=== PATIENT | male | born 1945 | race Caucasian/White ===

== ENCOUNTER 2023-06-02 07:38 | Outpatient (CLI) | payer MEDICARE, BC, SELFPAY ==
--- NOTE | 2023-06-02 08:00 | CRLHL7_ITS ---
For Patients: As a result of the Century Cures Act, medical imaging exams and procedure reports are released immediately into your electronic medical record. You may view this report before your referring provider. If you have questions, please contact your health care provider. INDICATION: Lung cancer screening. History of smoking. Current smoker. High risk patient with greater than 50 pack-year smoking history. TECHNIQUE: Low-dose lung cancer screening non-contrast CT chest. Dose reduction techniques were used. COMPARISON: None. FINDINGS: NODULES: 5 mm right perifissural nodule image 92 series 3.. LUNGS AND PLEURA: Emphysematous type change. Scattered subpleural fibrosis right and left upper lobes. 5 millimeter perifissural nodule right middle lobe of the lung image 92 series 3. MEDIASTINUM: Normal. CORONARY ARTERY CALCIFICATION: Present. LIMITED UPPER ABDOMEN: Normal. MUSCULOSKELETAL: Scattered hypertrophic spurring of the spine. IMPRESSION: Negative for lung cancer screening purposes. LUNG-RADS CATEGORY: 2: Benign. (<1% risk of malignancy) -Perifissural nodule(s): <10 mm RADIOLOGIST RECOMMENDATION: Continue annual screening with low-dose CT chest in 12 months. Please note that all CT scans at this facility use dose modulation, iterative reconstruction, and/or weight-based dosing when appropriate to reduce radiation dose to as low as reasonably achievable. Dictated by Mulugeta Borjas MD @ 06/02/2023 12:01:16 PM (Electronically Signed)
== END 2023-06-02 07:39 | disposition home or self-care (01) ==
LOC: CT 07:43
PROVIDERS: PCP Internal Medicine; Visit Provider Internal Medicine
DX: F17.200 Nicotine dependence, unspecified, uncomplicated (principal); Z12.2 Encounter for screening for malignant neoplasm of respiratory organs
CPT/HCPCS: 71271

== ENCOUNTER 2024-06-23 13:09 | Observation (INO) | payer MEDICARE, BC, SELFPAY ==
[2024-06-23] VITALS (9 sets, daily range): BP systolic 98–146; BP diastolic 64–86; PULSE 70–87; RESP 16–24; TEMP 36.2–36.4; O2SAT 87–93; BMI 31.3; BMI 31.9
--- NOTE | 2024-06-23 13:41 | ED_ITS ---
HPI - Back Pain/Injury General Time Seen by Provider: 13:41 Date Seen: 06/23/24 Chief Complaint: Back Injury/Pain Stated Complaint: Lower back pain Time Seen by Provider: 06/23/24 13:10 Source: patient, family and RN notes reviewed Mode of arrival: ambulatory Limitations: no limitations History of Present Illness HPI Narrative: This 79-year-old male is coming in accompanied by his for right flank pain. He denies any trauma, did put window screens in yesterday but was not bothering him. This pain woke him up in the middle of the night. He is taking a total of 1500 mg of Tylenol, tried an old muscle relaxant he had at home; nothing has improved his symptoms. He really has not ate or drank much today, maybe had some nausea earlier. No nausea at this time but diminished appetite. No abdominal pain per se. He had not noted any urinary symptoms but prior to coming in felt like he had to go in really only went a small amount. He feels like he could go again. He feels that this is a bit unusual. There has been no fevers or chills. The pain is not in the low back, does not go into his leg. He has had a history of sciatica and this is different. This is in his right flank area, deeper than where he can really touch on the external chest wall or abdominal wall. He has not had a bowel movement today but does not feel like there is any concerns with his bowels. Related Data Allergies Allergy/AdvReac Type Severity Reaction Status Date / Time No Known Drug Allergies Allergy Verified 06/23/24 13:22 Review of Systems Status of ROS: Reports: 6 or more systems reviewed and unremarkable except as noted in History and below [facility] Medical History Lumbar disc herniation with radiculopathy ?M51.16 - Intervertebral disc disorders with radiculopathy, lumbar region (ICD-10) Hypertension ?I10 - Essential (primary) hypertension (ICD-10) Dry eye syndrome ?H04.129 - Dry eye syndrome of unspecified lacrimal gland (ICD-10) History of Helicobacter pylori infection ?Z86.19 - Personal history of other infectious and parasitic diseases (ICD- 10) Tobacco use disorder ?F17.200 - Nicotine dependence, unspecified, uncomplicated (ICD-10) Primary osteoarthritis of right knee ?M17.11 - Unilateral primary osteoarthritis, right knee (ICD-10) COPD (chronic obstructive pulmonary disease) ?J44.9 - Chronic obstructive pulmonary disease, unspecified (ICD-10) Peripheral sensory neuropathy ?G60.8 - Other hereditary and idiopathic neuropathies (ICD-10) Type 2 diabetes mellitus without complication, without long-term current use of insulin ?E11.9 - Type 2 diabetes mellitus without complications (ICD-10) Surgical History History of umbilical hernia repair (01/17/16) ?Z98.890 - Other specified postprocedural states (ICD-10) ?Z87.19 - Personal history of other diseases of the digestive system (ICD-10) History of arthroscopy of left shoulder (03/16/14) ?Z98.890 - Other specified postprocedural states (ICD-10) History of total left knee replacement (2006) ?Z96.652 - Presence of left artificial knee joint (ICD-10) History of right inguinal hernia repair (1969) ?Z98.890 - Other specified postprocedural states (ICD-10) ?Z87.19 - Personal history of other diseases of the digestive system (ICD-10) History of elbow surgery (1999) ?Z98.890 - Other specified postprocedural states (ICD-10) History of appendectomy ?Z90.49 - Acquired absence of other specified parts of digestive tract (ICD- 10) History of Achilles tendon repair (1989) ?Z98.890 - Other specified postprocedural states (ICD-10) Family History Brother Colon cancer, Onset Age: 68 Heart disease Myocardial infarction Mother Heart valve replaced, Onset Age: 70 Social History Smoking Status: Current every day smoker What tobacco products do you use: cigarettes Smoking packs per day: 0.5 Smoking cigarettes per day: 10.0 How often do you have a drink containing alcohol: 2-4 times a month AUDIT-C Alcohol total score: 2 Non-prescribed substance use: denies use Exam Const: Vital Signs, click to edit/add: Vital Signs - 24 hr 06/23/24 13:15 06/23/24 15:45 06/23/24 15:49 Temperature 97.6 F Pulse Rate Pulse Rate [Pulse Oximeter] 70 87 Respiratory Rate 24 Blood Pressure [Ri ght Upper Arm] 146/86 H Pulse Oximetry 93 87 L 91 Oxygen Delivery Me thod Room Air Room Air Nasal Cannula Oxygen Flow Rate 1 06/23/24 15:50 Temperature Pulse Rate 73 Pulse Rate [Pulse Oximeter] Respiratory Rate Blood Pressure [Ri ght Upper Arm] Pulse Oximetry 89 Oxygen Delivery Me thod Nasal Cannula Oxygen Flow Rate 1 This 79-year-old male is up standing in the room when I come in. He is alert, interactive, does not look like he is very comfortable, moving about in the room. Pupils are equal round, sclera clear. Able speak in complete sentences. Lungs are clear, good air entry, no wheezing or crackles. CV regular rate and rhythm, no murmur, normal S1-S2, no S3-S4. Abdomen is soft, nontender, nondistended. Has some mild right CVA tenderness but I really cannot reproduce any palpable chest wall tenderness. Documenting provider has reviewed patient's vital signs: yes Course Course ED Course: Have discussed with this patient that he reminds me of someone with a kidney stone, just unable to get comfortable, no position of comfort. We will stab lotion IV, I will give him some IV morphine. He is not aware of any kidney iss ues but at his age, would like to see a creatinine before use any Toradol or NSAIDs. We will start with CT imaging of his abdomen, reviewed that that is best imaging for kidney stones. He understands that we may need to repeat imaging with IV contrast if indicated or needed. Will get a full complement of labs, he does feel like he can not urinate again and will get urinalysis. I doubt that this is musculoskeletal but would be considered if there is nothing else found on workup. Reevaluation(s) Time of Reevaluation #1: 15:14 Reevaluation #1: Patient requesting more pain meds. Will give more morphine and give oral dose of oxycodone. Patient CT is showing a right-sided kidney stone, will be in to talk to him about this. Time of Reevaluation #2: 15:46 Reevaluation #2: Went to talk to patient, his pulse oximeter was is not reading very well, looked to be hypoxic. I readjusted on his finger, had him rest this hand. He is anywhere from 85-88% mostly with a good waveform. Will occasionally jump above that but nothing above 91%. At home he states he is usually 90-91% with his COPD. He is resting right now, not feeling short of breath. Unfortunately with his kidney function, NSAIDs are not an option for pain management. Is going to need narcotics as Tylenol will not be sufficient. I think we may be forced to put him in the hospital with some supplemental oxygen, have asked staff to give him 1 L nasal cannula oxygen. I will review with the hospitalist. Have also paged out Urology. He has some stranding about his kidney, mildly elevated white blood count. He does not have significant pyuria but he also does not have significant hematuria with this kidney stone. Do wonder if he should be prophylaxed with antibiotics, observing him maybe more prudent in this situation if there is a question of infection, certainly does not seem definitive that there is at this time. Again, will review with the hospitalists, do have a page out to Urology as well. Consultations Consultation #1: Left message on hospitalist cellphone to call us back when she is available. 3:58 p.m.: Have spoken with Dr. Petty. She agrees with observing this patient, agrees that he does not meet criteria for transfer. We did specifically discuss the perinephric changes on the CT. She will watch him, watch for infection and get him transferred if this should be the case. Will not give any antibiotics at this point. Have not heard back from Urology. She has requested that we do a lab add on for her VBG for baseline for this patient which I have done. I have also ordered 0.4 mg of Flomax for him. She accepts. Time: 15:50 Vital Signs Vital signs: Initial Vital Signs Temperature 97.6 F 06/23/24 13:15 Temperature Source Temporal Artery Scan 06/23/24 13:15 Pulse Rate 70 06/23/24 13:15 Respiratory Rate 24 06/23/24 13:15 Blood Pressure 146/86 H 06/23/24 13:15 Blood Pressure Mean 106 H 06/23/24 13:15 Blood Pressure Position High-Fowlers 06/23/24 13:15 Pulse Oximetry 93 06/23/24 13:15 Oxygen Delivery Method Room Air 06/23/24 13:15 Vital Signs Temperature 97.6 F 06/23/24 13:15 Pulse Rate 70 06/23/24 13:15 Respiratory Rate 24 06/23/24 13:15 Blood Pressure 146/86 H 06/23/24 13:15 Pulse Oximetry 93 06/23/24 13:15 Oxygen Delivery Method Room Air 06/23/24 13:15 Temperature 97.6 F 06/23/24 13:15 Pulse Rate 73 06/23/24 15:50 Respiratory Rate 24 06/23/24 13:15 Blood Pressure 146/86 H 06/23/24 13:15 Pulse Oximetry 89 06/23/24 15:50 Oxygen Delivery Method Nasal Cannula 06/23/24 15:50 Oxygen Flow Rate 1 06/23/24 15:50 Medications Administered Medications: Discontinued Medications Generic Name Dose Route Start Last Admin Trade Name Freq PRN Reason Stop Dose Admin Sodium Chloride 500 mls @ 500 mls/hr 06/23/24 13:50 06/23/24 15:00 0.9 % Sodium Chloride 500 Ml IV 06/23/24 14:49 Infused .Q1H ONE Infusion Morphine Sulfate 2 mg 06/23/24 13:50 06/23/24 14:19 Morphine 2 Mg/Ml Inj IVP 06/23/24 13:51 2 mg ONCE ONE Administration Morphine Sulfate 2 mg 06/23/24 15:15 06/23/24 15:29 Morphine 2 Mg/Ml Inj IVP 06/23/24 15:16 2 mg ONCE ONE Administration Ondansetron HCl 4 mg 06/23/24 13:50 06/23/24 14:18 Ondansetron 2 Mg/Ml Inj IVP 06/23/24 13:51 4 mg ONCE ONE Administration Oxycodone HCl 5 mg 06/23/24 15:20 06/23/24 15:32 Oxycodone 5 Mg Tablet PO 06/23/24 15:21 5 mg ONCE ONE Administration MDM - Back Pain/Injury Lab Data Attestation: I reviewed the patient's lab results. Labs: Lab Results 06/23/24 06/23/24 Range/Units 14:10 Unknown WBC 12.85 H (4.50-11.00) K/uL RBC 5.07 (4.30-5.90) m/uL Hgb 17.3 (13.5-17.5) gm/dL Hct 50.3 (37.0-53.0) % MCV 99 (80-100) fL MCH 34 (26-34) pg MCHC 34 (32-36) gm/dL RDW Coeff of Edilia 12.9 (11.5-15.5) % Plt Count 180 (140-440) K/uL Neut % (Auto) 73.4 H (42.0-72.0) % Lymph % (Auto) 16.6 L (20-44) % Bent % (Auto) 8.7 (0.0-11.0) % Eos % (Auto) 0.3 (0.0-7.0) % Baso % (Auto) 0.2 (0.0-3.0) % Neut # (Auto) 9.40 H (1.7-7.0) K/uL Lymph # (Auto) 2.10 (0.90-2.90) K/uL Bent # (Auto) 1.10 H (0.00-0.90) K/UL Eos # (Auto) 0.00 (0.00-0.50) K/uL Baso # (Auto) 0.00 (0.00-0.30) K/uL Abs Immat Gran (auto) 0.10 (0.00-0.30) K/uL Imm/Tot Granulo (auto) 0.8 % Sodium 135 (135-149) mmol/L Potassium 5.0 (3.6-5.1) mmol/L Chloride 104 (96-114) mmol/L Carbon Dioxide 20 (20-32) mmol/L Anion Gap 11 (7-15) mEq/L BUN 24 (7-30) mg/dL Creatinine 1.3 (0.5-1.5) mg/dL Estimated Creat Clear 46.04 Estimated GFR 57 ml/min Glucose 132 H (60-115) mg/dL Lactate 2.2 H (0.5-1.9) mmol/L Calcium 9.9 (8.4-10.6) mg/dL C-Reactive Protein 0.6 (0.5-1.0) mg/dL Urine Color Yellow (Yellow) Urine Appearance Clear (Clear) Urine pH 7.0 (5.0-8.5) Ur Specific [place] 1.020 (1.000-1.030) Urine Protein Negative (Negative) Urine Glucose (UA) Negative (Negative) Urine Ketones Negative (Negative) Urine Blood 2+ A (Negative) Urine Nitrite Negative (Negative) Urine Bilirubin Negative (Negative) Urine Urobilinogen 0.2 (0.2-1.0) Ur Leukocyte Esterase Negative (Negative) Urine RBC 2-5 A (0-2) Urine WBC 0-2 (0-5) Ur Squamous Epith Cells None (None-Few) Urine Bacteria Few A (None) Imaging Data CT scan - abdomen: Attestation: I have reviewed the pertinent imaging results. Radiologist's impression: Patient: PAMELA GILLIS Facility:?[facility] Patient ID:?[id number] Site Patient ID:?[id number]. Site :?[id number] Study:?CT-Abdomen/Pelvis STONE STUDY-06/23/2024 2:46:21 PM Ordering Physician:?Gregory Buchanan Final Report: INDICATION: Right flank pain, kidney stone suspected. TECHNIQUE: CT abdomen and pelvis without contrast, stone protocol. COMPARISON: Lumbar spine CT 09/07/[address] 06/02/2023 FINDINGS: Kidney/ureters: Kidneys are normal in caliber. Moderate right perirenal fat stranding. Mild right hydronephrosis with obstructing right ureterovesicular junction stone measuring 4 mm. Liver/gallbladder/bile ducts: The liver is normal in size, shape and attenuation. Gallbladder is normal without visualized stones or inflammation. No biliary dilatation. Spleen/pancreas/adrenal glands: The spleen, adrenal glands and pancreas are within normal limits. GI tract: The bowel is unremarkable. Abdominal wall/omentum/peritoneum: No free air or significant free fluid. No mas s or inflammation. Lymph nodes: No lymphadenopathy. Pelvis: Unremarkable pelvis. Lower chest: Solid right perifissural nodule measuring 5 mm (3/8). Bibasal peripheral areas of cystic change. IMPRESSION: : Obstructing right ureterovesicular junction stone measuring 4 mm with mild right hydronephrosis and right perirenal fat stranding. Please correlate with urinalysis to evaluate for superimposed pyelonephritis. Please note that all CT scans at this facility use dose modulation, iterative reconstruction, and/or weight-based dosing when appropriate to reduce radiation dose to as low as reasonably achievable. Dictated by Bailey Cope MD @ 06/23/2024 3:09:19 PM (Electronic Signature) Discharge Plan Discharge Clinical Impression: Kidney stone on right side, Hypoxia
--- NOTE | 2024-06-23 13:50 | CRLHL7_ITS ---
For Patients: As a result of the Century Cures Act, medical imaging exams and procedure reports are released immediately into your electronic medical record. You may view this report before your referring provider. If you have questions, please contact your health care provider. INDICATION: Right flank pain, kidney stone suspected. TECHNIQUE: CT abdomen and pelvis without contrast, stone protocol. COMPARISON: Lumbar spine CT 09/07/[address] 06/02/2023 FINDINGS: Kidney/ureters: Kidneys are normal in caliber. Moderate right perirenal fat stranding. Mild right hydronephrosis with obstructing right ureterovesicular junction stone measuring 4 mm. Liver/gallbladder/bile ducts: The liver is normal in size, shape and attenuation. Gallbladder is normal without visualized stones or inflammation. No biliary dilatation. Spleen/pancreas/adrenal glands: The spleen, adrenal glands and pancreas are within normal limits. GI tract: The bowel is unremarkable. Abdominal wall/omentum/peritoneum: No free air or significant free fluid. No mass or inflammation. Lymph nodes: No lymphadenopathy. Pelvis: Unremarkable pelvis. Lower chest: Solid right perifissural nodule measuring 5 mm (3/8). Bibasal peripheral areas of cystic change. IMPRESSION: : Obstructing right ureterovesicular junction stone measuring 4 mm with mild right hydronephrosis and right perirenal fat stranding. Please correlate with urinalysis to evaluate for superimposed pyelonephritis. Please note that all CT scans at this facility use dose modulation, iterative reconstruction, and/or weight-based dosing when appropriate to reduce radiation dose to as low as reasonably achievable. Dictated by Bailey Cope MD @ 06/23/2024 3:09:19 PM (Electronically Signed)
[2024-06-23] MEDS: 0.9 % SODIUM CHLORIDE 500 ML 500 ML IV (14:18)
[2024-06-23] MEDS: ONDANSETRON 2 MG/ML inj 4 MG IVP (14:18)
[2024-06-23] MEDS: MORPHINE 2 MG/ML inj IVP ×2 (14:19→15:29)
[2024-06-23 14:20] LABS: Basophils Percent Auto 0.2 % (0.0-3.0); Eosinophils Percent Auto 0.3 % (0.0-7.0); Hematocrit 50.3 % (37.0-53.0); Hemoglobin* 17.3 gm/dL (13.5-17.5); Immature Granulocytes Pct Auto 0.8 %; Lymphocytes Percent Auto 16.6 % (20-44); Mean Corpuscular HGB Conc 34 gm/dL (32-36); Mean Corpuscular Hemoglobin 34 pg (26-34); Mean Corpuscular Volume 99 fL (80-100); Monocytes Percent Auto 8.7 % (0.0-11.0); Neutrophils Percent Auto 73.4 % (42.0-72.0); Platelet Count* 180 K/uL (140-440); RDW Coefficient of Variation % 12.9 % (11.5-15.5); Red Blood Count 5.07 m/uL (4.30-5.90); White Blood Count* 12.85 K/uL (4.50-11.00)
[2024-06-23 14:21] LABS: Slide Review Reflex No
[2024-06-23 14:24] LABS: Lactate* 2.2 mmol/L (0.5-1.9)
[2024-06-23 14:48] LABS: Chloride* 104 mmol/L (96-114); Sodium* 135 mmol/L (135-149)
[2024-06-23 14:50] LABS: Creatinine* 1.3 mg/dL (0.5-1.5); Est. Creatinine Clearance* 46.04; Estimated Glomerular Filt Rate 57 ml/min
[2024-06-23 14:51] LABS: Anion Gap 11 mEq/L (7-15); Blood Urea Nitrogen* 24 mg/dL (7-30); Carbon Dioxide* 20 mmol/L (20-32); Glucose* 132 mg/dL (60-115)
[2024-06-23 14:52] LABS: Calcium* 9.9 mg/dL (8.4-10.6)
[2024-06-23 14:54] LABS: C Reactive Protein* 0.6 mg/dL (0.5-1.0)
[2024-06-23 14:54] LABS: Appearance Urine Clear (Clear); Bilirubin Urine Negative (Negative); Blood Urine 2+ (Negative); Color Urine Yellow (Yellow); Glucose Urine Negative (Negative); Ketones Urine Negative (Negative); Leukocyte Esterase Urine Negative (Negative); Nitrite Urine Negative (Negative); Protein Urine Negative (Negative); Urobilinogen Urine 0.2 (0.2-1.0)
[2024-06-23 15:01] LABS: Bacteria Urine Few; WBC Urine 0-2 (0-5)
[2024-06-23] MEDS: OXYCODONE 5 MG TABLET PO (15:32)
[2024-06-23] MEDS: TAMSULOSIN HCL 0.4 MG CAPSULE PO (16:10)
[2024-06-23 16:14] LABS: PCO2 VBG 36 mmHG (40-50); pH VBG 7.415 (7.32-7.43)
[2024-06-23 16:15] LABS: HCO3 VBG 23 mmol/L (21-28); PO2 VBG 50.2 mmHG (25-47)
[2024-06-23] MEDS: ACETAMINOPHEN 325 MG TABLET PO (18:01)
[2024-06-23] MEDS: MORPHINE 4 MG/ML INJ IVP (18:10)
--- NOTE | 2024-06-23 18:23 | P.IMHP_ITS ---
Hospitalist- H&P: HPI History of Present Illness Date Seen: 06/23/24 Chief complaint: Lower back pain Narrative: ADMISSION HISTORY AND PHYSICAL - HOSPITALIST Chief Complaint: Right flank pain HPI: 79-year-old white male with a history of chronic tobacco dependence, COPD, type 2 diabetes who presents to the ED earlier today with the acute onset of right flank pain. No trauma. ER note reviewed. Subsequently diagnosed with a 4 mm right UVJ stone. Mild hydro. No history of nephrolithiasis in the past. No fever. No gross hematuria. This pain started suddenly/acutely at 4 this morning. No vomiting. No nausea. Pain rated 8 to 9/10. He tried to get a clinic appointment. His pain was too intense to stay home. He states he has never had anything like this before. Only changing positions helped minimally. ER COURSE: CT scan, labs, pain management. No urology consult. CODE STATUS: FULL CODE EMERGENCY CONTACT PLAN: , Paulina. [phone] CELL I've updated the PFSH, medications and allergies in the Expanse tabs. INVESTIGATIONS: LABS/MICRO/ECG/IMAGING Afebrile. T-max 97.6?. Blood pressure 146/86. Pulse 70s and 80s. Respiratory rate 16 to 20. Pulse ox as low as 87% on room air. Weight 95.1 kilos. White blood cell count elevated at 12.8. Platelet count normal. Hemoglobin 17.3. Blood gas normal. Electrolytes normal. Glucose 132. Last A1c was 6.8 in December of 2023. Elevated lactate minimally at 2.2. CRP 0.6 UA is clear. 2+ blood, 2-5 red blood cells. Negative LE, negative nitrite. Minimal white blood cells and a few bacteria. Culture pending. Abdomen pelvis CT Obstructing right ureterovesicular junction stone measuring 4 mm with mild right hydronephrosis and right perirenal fat stranding. Please correlate with urinalysis to evaluate for superimposed pyelonephritis. REVIEW OF SYSTEMS: 12-point ROS completed with patient and negative unless otherwise stated in HPI or below. PHYSICAL EXAM: CONSTITUTIONAL: Conversive, good historian. A/O. Knows setting and context. Uncomfortable appearing. VITAL SIGNS: see record. HEENT: Normocephalic, atraumatic. PERRL, EOMI, conjunctivae pink, no scleral icterus. Ears and nose externally normal. Pharynx normal. NECK: No JVD. No carotid bruit, no thyromegaly, no adenopathy. CHEST: Clear to auscultation bilaterally -no wheezes. HEART: S1 and S2 normal. No harsh murmurs BACK: Right CVA tenderness. NEURO: Cranial nerves intact. Grossly intact. No asymmetric findings. SKIN: No rashes, petechiae, concerning changes PSYCHIATRIC: Euthymic. ADMIT TO MEDSURG: FLOOR CARE DVT: SCDs, ambulation GI: PO intake Time spent: Today I spent 75 minutes seeing the patient, discussing the patient with ER staff, reviewing Expanse and EPIC notes/diagnostics, discussing the care plan with our care time that includes social work, PT/OT, pharmacy, RT, care home and documenting my impressions and plan in the medical record. [facility] Medical History (Updated 06/23/24 @ 18:39 by Gita Petty MD) Lumbar disc herniation with radiculopathy ?M51.16 - Intervertebral disc disorders with radiculopathy, lumbar region (ICD-10) Hypertension ?I10 - Essential (primary) hypertension (ICD-10) Dry eye syndrome ?H04.129 - Dry eye syndrome of unspecified lacrimal gland (ICD-10) History of Helicobacter pylori infection ?Z86.19 - Personal history of other infectious and parasitic diseases (ICD- 10) Tobacco use disorder ?F17.200 - Nicotine dependence, unspecified, uncomplicated (ICD-10) Primary osteoarthritis of right knee ?M17.11 - Unilateral primary osteoarthritis, right knee (ICD-10) COPD (chronic obstructive pulmonary disease) ?J44.9 - Chronic obstructive pulmonary disease, unspecified (ICD-10) Peripheral sensory neuropathy ?G60.8 - Other hereditary and idiopathic neuropathies (ICD-10) Type 2 diabetes mellitus without complication, without long-term current use of insulin ?E11.9 - Type 2 diabetes mellitus without complications (ICD-10) Surgical History History of umbilical hernia repair (01/17/16) ?Z98.890 - Other specified postprocedural states (ICD-10) ?Z87.19 - Personal history of other diseases of the digestive system (ICD-10) History of arthroscopy of left shoulder (03/16/14) ?Z98.890 - Other specified postprocedural states (ICD-10) History of total left knee replacement (2006) ?Z96.652 - Presence of left artificial knee joint (ICD-10) History of right inguinal hernia repair (1969) ?Z98.890 - Other specified postprocedural states (ICD-10) ?Z87.19 - Personal history of other diseases of the digestive system (ICD-10) History of elbow surgery (1999) ?Z98.890 - Other specified postprocedural states (ICD-10) History of appendectomy ?Z90.49 - Acquired absence of other specified parts of digestive tract (ICD- 10) History of Achilles tendon repair (1989) ?Z98.890 - Other specified postprocedural states (ICD-10) Family History Brother Colon cancer, Onset Age: 68 Heart disease Myocardial infarction Mother Heart valve replaced, Onset Age: 70 Social History What is your current living situation?: I presently have a place to live Problems where you live: no known problems Problems where you live details: n/a In the past 12 months, utilities in danger of being shut off: no In past 12 months, lack of transportation kept you from medical appts, meetings, work, or getting things needed for daily living: no In the past 12 mos, have been you worried that your food would run out before you had money to buy more?: never true In the past 12 mos, the food you bought just didn't last and you didn't have money to buy more?: never true Smoking Status: Current every day smoker What tobacco products do you use: cigarettes Smoking packs per day: 0.5 Smoking cigarettes per day: 10.0 How often do you have a drink containing alcohol: 2-4 times a month Alcohol type: beer How many standard drinks containing alcohol do you have on a typical day: 1 or 2 How often do you have six or more drinks on one occasion: Never AUDIT-C Alcohol total score: 2 Non-prescribed substance use: denies use Caffeine: Yes How often does anyone, including family, friends and others, physically hurt you : never How often does anyone, including family, friends and others, insult or talk down to you: never How often does anyone, including family, friends and others, threaten you with harm: never How often does anyone, including family, friends and others, scream or curse at you: never service: No Meds Home Medications and Allergies Home Medications ?Medication ?Instructions ?Recorded ?Confirmed ?Type albuterol sulfate 90 mcg/actuation 2 inh inhalation Q6H PRN 06/23/24 06/23/24 History aerosol inhaler losartan 25 mg tablet 25 mg PO HS 06/23/24 06/23/24 History metformin 500 mg tablet,extended 1,000 mg PO HS 06/23/24 06/23/24 History release 24 hr umeclidinium 62.5 mcg-vilanterol 1 inh inhalation DAILY 06/23/24 06/23/24 History 25 mcg/actuation powdr for inhalation (Anoro Ellipta) Allergies Allergy/AdvReac Type Severity Reaction Status Date / Time No Known Drug Allergies Allergy Verified 06/23/24 13:22 Exam Const: Vital Signs, click to edit/add: Vital Signs - 24 hr 06/23/24 13:15 06/23/24 15:45 06/23/24 15:49 Temperature 97.6 F Pulse Rate Pulse Rate [Pulse Oximeter] 70 87 Respiratory Rate 24 Blood Pressure [Le ft Arm] Blood Pressure [Ri ght Upper Arm] 146/86 H Pulse Oximetry 93 87 L 91 Oxygen Delivery Me thod Room Air Room Air Nasal Cannula Oxygen Flow Rate 1 06/23/24 15:50 06/23/24 16:00 06/23/24 16:15 Temperature Pulse Rate 73 86 87 Pulse Rate [Pulse Oximeter] Respiratory Rate Blood Pressure [Le ft Arm] Blood Pressure [Ri ght Upper Arm] Pulse Oximetry 89 89 91 Oxygen Delivery Me thod Nasal Cannula Nasal Cannula Nasal Cannula Oxygen Flow Rate 1 1 1 06/23/24 16:24 06/23/24 17:46 06/23/24 17:46 Temperature 97.5 F L Pulse Rate Pulse Rate [Pulse Oximeter] 84 Respiratory Rate 16 20 Blood Pressure [Le ft Arm] 110/76 Blood Pressure [Ri ght Upper Arm] Pulse Oximetry 89 93 93 Oxygen Delivery Me thod Nasal Cannula Nasal Cannula Oxygen Flow Rate 1 1.5 Hospitalist - H&P: Result Labs Labs: Short CBC 06/23/24 Range/Units 14:10 WBC 12.85 H (4.50-11.00) K/uL Hgb 17.3 (13.5-17.5) gm/dL Hct 50.3 (37.0-53.0) % Plt Count 180 (140-440) K/uL BMP 06/23/24 14:10 Sodium 135 Potassium 5.0 Chloride 104 Carbon Dioxide 20 BUN 24 Creatinine 1.3 Glucose 132 H Calcium 9.9 Urine 06/23/24 Range/Units Unknown Urine Color Yellow (Yellow) Urine Appearance Clear (Clear) Urine pH 7.0 (5.0-8.5) Ur Specific [place] 1.020 (1.000-1.030) Urine Protein Negative (Negative) Urine Glucose (UA) Negative (Negative) Assessment and Plan Assessment and plan (1) Acute hypoxemic respiratory failure: Problem comment: -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 If fever or other evidence of infection consider transfer to urology care promptly. NOT ON ANTIBIOTIC. -daily flomax is a new med Status: Acute (3) Hypertension: Problem comment: -continue home meds; monitor Status: Chronic (4) Tobacco use disorder: Problem comment: -nicotine patch, prn ativan Status: Chronic (5) COPD (chronic obstructive pulmonary disease): Problem comment: -continue home meds -pulse oximetry -oxygen prn to keep sats 88% or higher Status: Chronic (6) Type 2 diabetes mellitus without complication, without long-term current use of insulin: Problem comment: -hold metformin; SSI Status: Chronic
[2024-06-23] MEDS: KETOROLAC 15 MG/ML inj IVP (18:35)
[2024-06-23] MEDS: LOSARTAN POTASSIUM 50 MG TABLET 25 MG PO (20:51)
[2024-06-23] MEDS: NICOTINE 14 mg PATCH 1 PATCH TOPICAL (20:52)
[2024-06-23] MEDS: SODIUM CHLORIDE 0.9 % (FLUSH) 10 ML SYRINGE 5 ML IVF (20:52)
[2024-06-23] MEDS: INSULIN ASPART 100 UNIT/ML SUBCUT (20:52)
[2024-06-23] MEDS: SENNOSIDES/DOCUSATE TABLET 1 TAB PO (21:02)
--- NOTE | 2024-06-23 23:36 | PC.NURSE ---
Addendum entered by Meli Kellogg RN 06/23/24 23:51: Pt also stated he has not had a BM in 2 days. PRN Senna given at HS. Original Note: Shift Note: Pt friendly and cooperative, able to verbalize his needs. A/o x3. Initially rating pain 7/10, Morphine, Tylenol, and Toradol given. Pt verbalized significant relief, rating pain 4/10 throughout the evening. One void. Urine was strained and no stones were present. Pt encouraged to drink fluids, and did drink approx 1,000 cc of water. Great appetite, ate 100% of his meal tray. BG= 284, pt was given 3 units Novolog per SS. SpO2 desaturations to 83% on RA. He has needed 1-2L/O2 via NC to maintain SpO2 88-90%.
[2024-06-24 03:00] VITALS: BP 102/63; PULSE 73; RESP 18; TEMP 36.6; O2SAT 92
--- NOTE | 2024-06-24 06:14 | PC.NURSE ---
End of shift [id number]: ? Pt AxOx4, cooperative, and pleasant. Upon initial assessment, Pt was asleep and remained asleep during cares. Arousable to name/touch. Pt has not stated any active pain. Pt continent of the bladder.?Urine was strained and no stones were present. Pt encouraged to drink fluids. Pt?has needed 0.5-1 L/O2 via NC to maintain SpO2 above 88%. Pt appears resting with call light in reach.
[2024-06-24 06:45] LABS: pH VBG 7.368 (7.32-7.43)
[2024-06-24 06:46] LABS: HCO3 VBG 26 mmol/L (21-28); PCO2 VBG 45 mmHG (40-50); PO2 VBG 53.4 mmHG (25-47)
[2024-06-24 06:49] LABS: Basophils Absolute Auto 0.04 K/uL (0.00-0.30); Basophils Percent Auto 0.5 % (0.0-3.0); Eosinophils Absolute Auto 0.22 K/uL (0.00-0.50); Eosinophils Percent Auto 2.6 % (0.0-7.0); Hematocrit 43.6 % (37.0-53.0); Hemoglobin* 14.8 gm/dL (13.5-17.5); Immature Granulocytes Abs Auto 0.03 K/uL (0.00-0.30); Immature Granulocytes Pct Auto 0.4 %; Lymphocytes Absolute Auto 3.01 K/uL (0.90-2.90); Lymphocytes Percent Auto 35.5 % (20-44); Mean Corpuscular HGB Conc 34 gm/dL (32-36); Mean Corpuscular Hemoglobin 34 pg (26-34); Mean Corpuscular Volume 101 fL (80-100); Monocytes Percent Auto 10.7 % (0.0-11.0); Neutrophils Absolute Auto 4.27 K/uL (1.7-7.0); Neutrophils Percent Auto 50.3 % (42.0-72.0); Platelet Count* 166 K/uL (140-440); RDW Coefficient of Variation % 13.1 % (11.5-15.5); Red Blood Count 4.33 m/uL (4.30-5.90); Slide Review Reflex No; White Blood Count* 8.48 K/uL (4.50-11.00)
[2024-06-24 06:59] LABS: Albumin* 3.4 g/dL (3.3-5.0); Chloride* 102 mmol/L (96-114)
[2024-06-24 07:00] LABS: Potassium* 4.3 mmol/L (3.6-5.1); Sodium* 135 mmol/L (135-149)
[2024-06-24 07:02] LABS: Anion Gap 7 mEq/L (7-15); Aspartate Amino Transferase* 18 U/L (12-35); Bilirubin Total* 0.4 mg/dL (0.1-1.5); Carbon Dioxide* 26 mmol/L (20-32); Creatinine* 1.4 mg/dL (0.5-1.5); Est. Creatinine Clearance* 42.75; Estimated Glomerular Filt Rate 52 ml/min; Total Protein* 6.1 g/dL (6.0-8.3)
[2024-06-24 07:03] LABS: Alanine Aminotransferase* 12 U/L (4-50); Alkaline Phosphatase* 63 U/L (40-150); Blood Urea Nitrogen* 29 mg/dL (7-30); Calcium* 8.9 mg/dL (8.4-10.6); Glucose* 109 mg/dL (60-115)
[2024-06-24 07:05] LABS: C Reactive Protein* 2.3 mg/dL (0.5-1.0)
[2024-06-24 07:43] VITALS: BP 103/71; PULSE 82; RESP 18; O2SAT 91
[2024-06-24] MEDS: TAMSULOSIN HCL 0.4 MG CAPSULE PO (09:21)
--- NOTE | 2024-06-24 10:09 | PM.DS1 ---
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 If fever or other evidence of infection consider transfer to urology care promptly. NOT ON ANTIBIOTIC. Daily flomax is a new med. -06/24 has not needed any pain medication overnight. No stone in strainer yet. Will d/c home with strainer, flomax, and NSAIDS, a few doses of opioid. Instructions for returning to ER if fever or no UO. F/u with PCP. (3) Hypertension: Status: Chronic Problem details: -continue home meds (4) Tobacco use disorder: Status: Chronic Problem details: -06/23/24 nicotine patch, prn ativan (5) COPD (chronic obstructive pulmonary disease): Status: Chronic Problem details: -continue home meds (6) Type 2 diabetes mellitus without complication, without long-term current use of insulin: Status: Chronic Problem details: -Cr at baseline. Continue metformin (7) Chronic kidney disease, stage III (moderate): Status: Chronic Problem details: - Cr baseline approx 1.3-1.8. Was 1.89 on last check at [facility] on 01/06/24. 1.3-1.4 on this admission. CKD stage 3. Okay to use ibuprofen for pain. F/u with PCP on Thursday with labs: Cr DS: Summary Hospital Course Hospital Course: Per H&P: 79-year-old white male with a history of chronic tobacco dependence, COPD, type 2 diabetes who presents to the ED earlier today with the acute onset of right flank pain. No trauma. ER note reviewed. Subsequently diagnosed with a 4 mm right UVJ stone. Mild hydro. No history of nephrolithiasis in the past. No fever. No gross hematuria. This pain started suddenly/acutely at 4 this morning. No vomiting. No nausea. Pain rated 8 to 9/10. He tried to get a clinic appointment. His pain was too intense to stay home. He states he has never had anything like this before. Only changing positions helped minimally. ER COURSE: CT scan, labs, pain management. No urology consult. Patient received 3 doses of morphine and a dose of Toradol yesterday afternoon and evening. His pain resolved and overnight he has not used any pain medication whatsoever. He is feeling back to his baseline in desires discharge home. We have been straining his urine and he has not yet passed a stone. Patient and his , Paulina, demonstrated understanding that if he develops a fever it could be a urologic emergency and he should return to the emergency department immediately. We also discussed that they should watch for inability to pass urine and pain that is uncontrolled with ibuprofen and if this happens then you will need to return for re-evaluation. I have given him 5 tablets of oxycodone 5 mg to be used as needed if pain is not controlled with ibuprofen, but if it is getting to that level he may need re-evaluation as he was mildly hypoxic while taking opioids due to concurrent COPD. Will have him follow-up with his primary care provider next week to check creatinine level and see how he is doing. He is discharged home today in improved and stable condition. Time Spent with Patient Time attestation: Total time spent providing and/or coordinating discharge services: Exam Narrative: Exam Narrative: General: No acute distress. Comfortable. Awake, alert, oriented x3. No pallor. No jaundice. Oropharynx: Clear. Mucous membranes moist. Cardiovascular: Regular rate and rhythm. No murmurs, gallops, or rubs. Respiratory: Clear to auscultation bilaterally. No wheezes or crackles. Abdomen: No costovertebral angle tenderness. Bowel sounds present. Soft, nondistended, nontender. Const: Vital Signs, click to edit/add: Vital Signs - 24 hr 06/23/24 13:15 06/23/24 15:45 06/23/24 15:49 Temperature 97.6 F Pulse Rate Pulse Rate [Pulse Oximeter] 70 87 Respiratory Rate 24 Blood Pressure [Le ft Arm] Blood Pressure [Ri ght Upper Arm] 146/86 H Pulse Oximetry 93 87 L 91 Oxygen Delivery Me thod Room Air Room Air Nasal Cannula Oxygen Flow Rate 1 06/23/24 15:50 06/23/24 16:00 06/23/24 16:15 Temperature Pulse Rate 73 86 87 Pulse Rate [Pulse Oximeter] Respiratory Rate Blood Pressure [Le ft Arm] Blood Pressure [Ri ght Upper Arm] Pulse Oximetry 89 89 91 Oxygen Delivery Me thod Nasal Cannula Nasal Cannula Nasal Cannula Oxygen Flow Rate 1 1 1 06/23/24 16:24 06/23/24 16:24 06/23/24 17:46 Temperature 97.5 F L Pulse Rate Pulse Rate [Pulse Oximeter] 84 Respiratory Rate 16 20 Blood Pressure [Le ft Arm] 110/76 Blood Pressure [Ri ght Upper Arm] Pulse Oximetry 89 88 93 Oxygen Delivery Me thod Nasal Cannula Nasal Cannula Oxygen Flow Rate 1 2 06/23/24 17:46 06/23/24 17:46 06/23/24 23:00 Temperature 97.1 F L 97.4 F L Pulse Rate Pulse Rate [Pulse Oximeter] 72 73 Respiratory Rate 20 20 18 Blood Pressure [Le ft Arm] 110/72 98/64 Blood Pressure [Ri ght Upper Arm] Pulse Oximetry 93 88 91 Oxygen Delivery Me thod Nasal Cannula Nasal Cannula Nasal Cannula Oxygen Flow Rate 1.5 2 1 06/24/24 03:00 06/24/24 07:43 Temperature 97.9 F Pulse Rate Pulse Rate [Pulse Oximeter] 73 82 Respiratory Rate 18 18 Blood Pressure [Le ft Arm] 102/63 103/71 Blood Pressure [Ri ght Upper Arm] Pulse Oximetry 92 91 Oxygen Delivery Me thod Nasal Cannula Room Air Oxygen Flow Rate 0.5 DS: Data Data Completed and Pending Completed studies during hospitalization: Ordering Physician: Chanel Jenkins M.D. Date of Service: 06/23/24 Procedure(s): CT abdomen pelvis wo con Accession Number(s): [id number] cc: Bordy Lira M.D.; Chanel Jenkins M.D.~ For Patients: As a result of the Century Cures Act, medical imaging exams and procedure reports are released immediately into your electronic medical record. You may view this report before your referring provider. If you have questions, please contact your health care provider. INDICATION: Right flank pain, kidney stone suspected. TECHNIQUE: CT abdomen and pelvis without contrast, stone protocol. COMPARISON: Lumbar spine CT 09/07/[address] 06/02/2023 FINDINGS: Kidney/ureters: Kidneys are normal in caliber. Moderate right perirenal fat stranding. Mild right hydronephrosis with obstructing right ureterovesicular junction stone measuring 4 mm. Liver/gallbladder/bile ducts: The liver is normal in size, shape and attenuation. Gallbladder is normal without visualized stones or inflammation. No biliary dilatation. Spleen/pancreas/adrenal glands: The spleen, adrenal glands and pancreas are within normal limits. GI tract: The bowel is unremarkable. Abdominal wall/omentum/peritoneum: No free air or significant free fluid. No mass or inflammation. Lymph nodes: No lymphadenopathy. Pelvis: Unremarkable pelvis. Lower chest: Solid right perifissural nodule measuring 5 mm (3/8). Bibasal peripheral areas of cystic change. IMPRESSION: : Obstructing right ureterovesicular junction stone measuring 4 mm with mild right hydronephrosis and right perirenal fat stranding. Please correlate with urinalysis to evaluate for superimposed pyelonephritis. Please note that all CT scans at this facility use dose modulation, iterative reconstruction, and/or weight-based dosing when appropriate to reduce radiation dose to as low as reasonably achievable. Dictated by Bailey Cope MD @ 06/23/2024 3:09:19 PM (Electronically Signed) Labs on day of discharge: Labs from last 24 hours 06/24/24 06/23/24 06/23/24 06:22 Unknown 16:02 WBC 8.48 RBC 4.33 Hgb 14.8 Hct 43.6 MCV 101 H MCH 34 MCHC 34 RDW Coeff of Edilia 13.1 Plt Count 166 Neut % (Auto) 50.3 Lymph % (Auto) 35.5 [place] % (Auto) 10.7 Eos % (Auto) 2.6 Baso % (Auto) 0.5 Neut # (Auto) 4.27 Lymph # (Auto) 3.01 H [place] # (Auto) 0.90 Eos # (Auto) 0.22 Baso # (Auto) 0.04 Abs Immat Gran (auto) 0.03 Imm/Tot Granulo (auto) 0.4 VBG pH 7.368 VBG pCO2 45 VBG pO2 53.4 H VBG HCO3 26 Sodium 135 Potassium 4.3 Chloride 102 Carbon Dioxide 26 Anion Gap 7 BUN 29 Creatinine 1.4 Estimated Creat Clear 42.75 Estimated GFR 52 Glucose 109 Lactate Calcium 8.9 Total Bilirubin 0.4 AST 18 ALT 12 Alkaline Phosphatase 63 C-Reactive Protein 2.3 H Total Protein 6.1 Albumin 3.4 Urine Color Yellow Urine Appearance Clear Urine pH 7.0 Ur Specific [place] 1.020 Urine Protein Negative Urine Glucose (UA) Negative Urine Ketones Negative Urine Blood 2+ A Urine Nitrite Negative Urine Bilirubin Negative Urine Urobilinogen 0.2 Ur Leukocyte Esterase Negative Urine RBC 2-5 A Urine WBC 0-2 Ur Squamous Epith Cells None Urine Bacteria Few A Lab Acknowledgement Test Added 06/23/24 14:10 WBC 12.85 H RBC 5.07 Hgb 17.3 Hct 50.3 MCV 99 MCH 34 MCHC 34 RDW Coeff of [place] 12.9 Plt Count 180 Neut % (Auto) 73.4 H Lymph % (Auto) 16.6 L [place] % (Auto) 8.7 Eos % (Auto) 0.3 Baso % (Auto) 0.2 Neut # (Auto) 9.40 H Lymph # (Auto) 2.10 [place] # (Auto) 1.10 H Eos # (Auto) 0.00 Baso # (Auto) 0.00 Abs Immat Gran (auto) 0.10 Imm/Tot Granulo (auto) 0.8 VBG pH 7.415 VBG pCO2 36 L VBG pO2 50.2 H VBG HCO3 23 Sodium 135 Potassium 5.0 Chloride 104 Carbon Dioxide 20 Anion Gap 11 BUN 24 Creatinine 1.3 Estimated Creat Clear 46.04 Estimated GFR 57 Glucose 132 H Lactate 2.2 H Calcium 9.9 Total Bilirubin AST ALT Alkaline Phosphatase C-Reactive Protein 0.6 Total Protein Albumin Urine Color Urine Appearance Urine pH Ur Specific [place] Urine Protein Urine Glucose (UA) Urine Ketones Urine Blood Urine Nitrite Urine Bilirubin Urine Urobilinogen Ur Leukocyte Esterase Urine RBC Urine WBC Ur Squamous Epith Cells Urine Bacteria Lab Acknowledgement Preliminary micro results at discharge 06/23/24 Unknown Urine Culture - Preliminary Urine,Clean Catch Culture in Progress Discharge Plan Discharge Disposition: Home, Self-Care Date of Admission: 06/23/24 16:20 Attending Provider on Discharge: Nell Snider Discharge Medications: New tamsulosin 0.4 mg Capsule 0.4 mg PO DAILY Qty: 30 0RF oxycodone 5 mg tablet 2.5 - 5 mg PO Q4H MDD 15 PRN (Reason: pain) Qty: 5 0RF ibuprofen 200 mg capsule 400 mg PO Q4H PRN (Reason: pain) Qty: 100 0RF Continued losartan 25 mg tablet 25 mg PO HS metformin 500 mg tablet extended release 24 hr 1,000 mg PO HS Anoro Ellipta 62.5-25 mcg/actuation blister with device 1 inh INHALATION DAILY albuterol sulfate 90 mcg/actuation HFA aerosol inhaler 2 inh inhalation Q6H PRN Patient Comments: rarely uses Discharge Orders: Discharge Order (Routine); Ordered 06/24/24 Ordered By: Nell Snider Additional Instructions: Follow-up with Dr. Pelayo in 5 days with a lab draw for creatinine level. Strain your urine and if a stone is found bring it to your primary care provider for testing. If you develop fever, inability to pass urine, or pain that is not controlled at home with ibuprofen, go to the emergency room for evaluation. If you have not passed the stone after 14 days, talk with Dr. Pelayo as you may need to see a urologist. Activity Level: No Restrictions Discharge Diet: Regular Follow Up Appointments: Rambo Pelayo MD [Primary Care Provider] - (5 days with Creatinine) Forms: [employer] Info Instructions
--- NOTE | 2024-06-24 11:43 | PC.NURSE ---
shift note: pt denies pain, No stone present at urine collection this a.m. Reviewed urine straining at home for stone with pt. supplies sent with pt for straining and collection. IV dc'd intact. Reviewed dc instructions and copies sent with pt at nc. Belongings sent with pt at nc.
== END 2024-06-24 11:47 | disposition home or self-care (01) ==
LOC: ED 16:06 → MEDSURG 16:21
PROVIDERS: Family Medicine; Admitting Provider Student in an Organized Health Care Education/Training Program; Emergency Provider Family Medicine; PCP Family Medicine; Visit Provider Student in an Organized Health Care Education/Training Program
DX: N20.0 Calculus of kidney (principal); J96.01 Acute respiratory failure with hypoxia; T40.2X5A Adverse effect of other opioids, initial encounter; J44.9 Chronic obstructive pulmonary disease, unspecified; D72.829 Elevated white blood cell count, unspecified; R82.81 Pyuria; R31.9 Hematuria, unspecified; I12.9 Hypertensive chronic kidney disease with stage 1 through stage 4 chronic kidney disease, or unspecified chronic kidney disease; E11.22 Type 2 diabetes mellitus with diabetic chronic kidney disease; N18.30 Chronic kidney disease, stage 3 unspecified; F17.200 Nicotine dependence, unspecified, uncomplicated; R10.9 Unspecified abdominal pain; G60.8 Other hereditary and idiopathic neuropathies; M51.16 Intervertebral disc disorders with radiculopathy, lumbar region; Z90.49 Acquired absence of other specified parts of digestive tract; Z79.84 Long term (current) use of oral hypoglycemic drugs; Z87.19 Personal history of other diseases of the digestive system; Z86.19 Personal history of other infectious and parasitic diseases; Z96.652 Presence of left artificial knee joint; Z98.890 Other specified postprocedural states
CPT/HCPCS: 36415; 74176; 80048; 80053; 81001; 82803; 82962; 83605; 85025; 86140; 87086; 93005; 94761; 96361; 96372; 96374; 96375; 96376; 99284; 99285; A9270; G0378; J1885; J2270; J2405; J7030; S4990

== ENCOUNTER 2024-07-27 07:11 | Outpatient (CLI) | payer MEDICARE, BC, SELFPAY ==
--- NOTE | 2024-07-27 07:15 | MR_ITS ---
[address] [address] Phone:?[phone] Fax:?[phone] Referring Physician Information: Branden Bernal M.D. [id number] [facility] [address] Phone:?[phone] Fax:?[phone] Patient:Anitra Arizmendi D.O.B:?1945 Sex:?Male Phone:?[phone] [facility] MRN:?[id number] Exam Date:?07/27/2024 EXAM: MRI OF THE LEFT SHOULDER CLINICAL INFORMATION: The patient is a 79-year-old with left shoulder pain. Evaluate for rotator cuff tear. Evaluate articular cartilage. PRIOR SURGERY: None reported. COMPARISON STUDIES: Comparison is made to prior radiographs dated 07/25/2024. Comparison is also made to the prior MRI examination dated 05/25/2023. TECHNICAL INFORMATION: Using a 1.5T MR scanner and a localizing shoulder surface coil: 3.0 mm?coronal obliques: PD, T2, STIR 3.0 mm?sagittal obliques: PD, T2 3.0 mm?axials: PD, T2 FINDINGS: Articular/Extraarticular collections: Effusion: Mild to moderate. Subacromial/subdeltoid: Mild fluid is seen within the subacromial/subdeltoid bursa, in keeping with changes of mild bursitis. Subcoracoid: No evidence for bursitis. Osseous structures: Proximal humerus: Reactive bony changes are seen involving the greater tuberosity, in keeping with the rotator cuff pathology discussed below. There is no evidence for greater or lesser tuberosity fracture. No Hill-Sachs or reverse Hill-Sachs lesion is identified. Glenoid: No acute bony abnormality of the glenoid fossa or glenoid neck can be seen. Acromioclavicular joint: Evidence for prior acromioplasty and distal clavicular resection is thought to be present. Coracoacromial arch: Acromion morphology: Type I. No evidence for os acromiale. Acromiohumeral space: Within normal limits. Coracohumeral space: Within normal limits. Rotator cuff and deltoid: Supraspinatus: Moderate changes of supraspinatus tendinosis can be seen with a ganglion cyst involving the superficial fibers of the supraspinatus tendon distally on coronal series 7 image 10 and on sagittal series 9 image 4. The ganglion cyst measures approximately 14 mm in mediolateral dimension, 13 mm in anteroposterior dimension, and 5 mm in craniocaudal dimension. The finding was also present on the prior MRI examination. No full-thickness tearing or retraction of the supraspinatus tendon fibers can be seen. No atrophic changes of the supraspinatus muscle belly are present. Infraspinatus: Moderate infraspinatus tendinosis can be seen. There is no evidence for full or partial-thickness tearing. No atrophic changes of the infraspinatus muscle belly are identified. Teres minor: No evidence for tendinosis, tearing, or associated muscle belly atrophy. Subscapularis: Moderate subscapularis tendinosis can be seen. There is no evidence for full or partial-thickness tearing. No atrophic changes of the subscapularis muscle belly are noted. Deltoid: No evidence for strain or tearing. Biceps tendon: The intra-articular and biceps sulcus portions of the biceps tendon are normal. There is no evidence for rupture, dislocation, or subluxation. Glenohumeral joint and labrum: Articular Cartilage: Chondromalacia and chondral thinning can be seen along the articular surfaces of the glenohumeral articulation. No osteoarthritic changes are identified. Labrum: Degeneration and fraying of the glenoid labrum can be seen without definite areas of well-defined tearing. No paralabral ganglion cyst formation is noted. Capsular Soft Tissues: No definite capsular abnormalities of the glenohumeral joint are seen. No evidence for capsular tearing is present and there are no MR signs of adhesive capsulitis. CONCLUSION: 1. Moderate supraspinatus, infraspinatus, and subscapularis tendinosis. No full- thickness tearing or retraction is identified. 2. 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 3. Evidence for prior acromioplasty and distal clavicular resection is thought to be present. 4. 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 5. The long head of the biceps tendon appears intact. 6. Mild to moderate glenohumeral joint effusion and mild subacromial/subdeltoid bursitis. AEC Electronically signed on 07/27/2024 9:44:00 AM by Faisal Jean Baptiste M.D.
== END 2024-07-27 07:12 | disposition home or self-care (01) ==
LOC: MRI 07:12
PROVIDERS: PCP Family Medicine; Visit Provider Orthopaedic Surgery
DX: M25.512 Pain in left shoulder (principal); M75.102 Unspecified rotator cuff tear or rupture of left shoulder, not specified as traumatic; M94.212 Chondromalacia, left shoulder; M25.412 Effusion, left shoulder
CPT/HCPCS: 73221